=== PATIENT | female | born 1995 | race African-American/Black ===

== ENCOUNTER 2020-05-14 20:51 | Emergency (ER) | payer OTHER ==
[~2020-05-14] VITALS: Ht 165.1 cm; Wt 74.1 kg
[2020-05-15 00:17] LABS: BASO % 0.5 % (0.0-1.0); EOS # 0.2 10^3/uL (0.0-0.5); EOS % 2.7 % (0.0-3.0); HEMATOCRIT 40.4 % (36.0-47.0); LYMPH # 4.1 10^3/uL (1.5-5.0); LYMPH % 51.4 % (24.0-44.0); MEAN CORPUSCULAR HEMOGLOBIN 29.4 pg (27.0-33.0); MEAN CORPUSCULAR HGB CONC 32.2 g/dl (32.0-36.5); MEAN CORPUSCULAR VOLUME 91.4 fl (80.0-96.0); MONO # 0.6 10^3/uL (0.0-0.8); MONO % 7.8 % (0.0-5.0); NEUTROPHILS % 37.4 % (36.0-66.0); PLATELET COUNT, AUTOMATED 274 10^3/uL (150-450); RED BLOOD COUNT 4.42 10^6/uL (4.00-5.40); WHITE BLOOD COUNT 8.1 10^3/uL (4.0-10.0)
--- NOTE | 2020-05-15 00:42 | REPVR ---
PROCEDURE INFORMATION: Exam: US Duplex Right Lower Extremity Veins, Limited Exam date and time: 05/14/2020 12:34 AM Age: 24 years old Clinical indication: Edema, localized; Lower extremity, right; Additional info: Numbness R leg, swelling R knee TECHNIQUE: Imaging protocol: Real-time Duplex ultrasound of the Right Lower Extremity with 2-D ryan scale, color Doppler flow and spectral waveform analysis with image documentation. Limited exam was focused on the right lower extremity veins. COMPARISON: No relevant prior studies available. FINDINGS: Right deep veins: Unremarkable. The common femoral, femoral, proximal profunda femoral and popliteal veins are patent without thrombus. Normal Doppler waveforms. Normal compressibility and/or augmentation response. Right superficial veins: Unremarkable. Saphenofemoral junction is patent without thrombus. Soft tissues: Right popliteal cyst measuring 3.5 x 1.4 x 2.4 cm. IMPRESSION: 1. No evidence of DVT. 2. Right popliteal cyst. Electronically signed by: Kwame Lynch On 05/15/2020 00:42:03 AM
[2020-05-15 01:16] VITALS: BP 107/62
== END 2020-05-15 01:21 | disposition home or self-care (01) ==
LOC: M ED 20:51
DX: M71.21 Synovial cyst of popliteal space [Baker], right knee (principal); R20.2 Paresthesia of skin

== ENCOUNTER 2020-07-29 20:32 | Emergency (ER) | payer OTHER ==
[~2020-07-29] VITALS: Ht 165.1 cm; Wt 74.5 kg
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
[2020-07-29] MEDS ORDERED: IBUP-1022 PO (22:51)
[2020-07-29] MEDS ORDERED: CYCL-707 PO (22:51)
[2020-07-29] MEDS ORDERED: IBUPROFEN 600MG TAB PO ONE (23:00)
[2020-07-29] MEDS ORDERED: CYCLOBENZAPRINE 10MG TABLET PO ONE (23:00)
[2020-07-29 23:11] VITALS: BP 127/70
== END 2020-07-29 23:15 | disposition home or self-care (01) ==
LOC: M ED 20:32
DX: S33.5XXA Sprain of ligaments of lumbar spine, initial encounter (principal); V43.52XA Car driver injured in collision with other type car in traffic accident, initial encounter; Y92.9 Unspecified place or not applicable; Y93.9 Activity, unspecified; Y99.9 Unspecified external cause status

== ENCOUNTER 2020-08-18 06:55 | Emergency (ER) | payer OTHER ==
[~2020-08-18] VITALS: Ht 165.1 cm; Wt 73.8 kg
[~2020-08-18 06:55] MED LIST: CYCL-707 PO; IBUP-1022 PO
[2020-08-18 08:26] LABS: INFLUENZA A AMPLIFICATION NEGATIVE (NEGATIVE); INFLUENZA B AMPLIFICATION NEGATIVE (NEGATIVE)
--- NOTE | 2020-08-18 08:29 | REPVR ---
PROCEDURE INFORMATION: Exam: XR Chest, 1 View Exam date and time: 08/18/2020 8:00 AM Age: 24 years old Clinical indication: Cough and fever and shortness of breath; Additional info: Sob/cough/fever TECHNIQUE: Imaging protocol: XR of the chest Views: 1 view. COMPARISON: No relevant prior studies available. FINDINGS: Lungs: Unremarkable. No consolidation. Pleural space: Unremarkable. No pleural effusion. No pneumothorax. Heart/Mediastinum: Unremarkable. No cardiomegaly. Bones/joints: Unremarkable. IMPRESSION: No acute infiltrate. Electronically signed by: Kwame Lynch On 08/18/2020 08:29:08 AM
[2020-08-18 08:55] VITALS: BP 125/78
== END 2020-08-18 08:56 | disposition home or self-care (01) ==
LOC: M ED 06:55
DX: J06.9 Acute upper respiratory infection, unspecified (principal); Z11.59 Encounter for screening for other viral diseases; R50.9 Fever, unspecified; R53.83 Other fatigue; R09.89 Other specified symptoms and signs involving the circulatory and respiratory systems; R42 Dizziness and giddiness; R09.81 Nasal congestion; R06.02 Shortness of breath; R51.9 Headache, unspecified
CPT/HCPCS: 71045; 87502; 87880; 99284; U0003

== ENCOUNTER 2020-11-30 09:42 | Emergency (ER) | payer OTHER ==
[~2020-11-30] VITALS: Ht 165.1 cm; Wt 77.9 kg
[2020-11-30] MEDS ORDERED: NS 1,000 ML IV ONE (10:15)
[2020-11-30 11:07] LABS: BASO % 0.3 % (0.0-1.0); EOS # 0.1 10^3/uL (0.0-0.5); EOS % 1.1 % (0.0-3.0); HEMATOCRIT 39.7 % (36.0-47.0); HEMOGLOBIN 12.8 g/dl (12.0-15.5); LYMPH # 3.4 10^3/uL (1.5-5.0); MEAN CORPUSCULAR HGB CONC 32.2 g/dl (32.0-36.5); MEAN CORPUSCULAR VOLUME 96.1 fl (80.0-96.0); MONO # 0.7 10^3/uL (0.0-0.8); NEUTROPHILS # 4.5 10^3/uL (1.5-8.5); NEUTROPHILS % 51.5 % (36.0-66.0); PLATELET COUNT, AUTOMATED 270 10^3/uL (150-450); RED BLOOD COUNT 4.13 10^6/uL (4.00-5.40); WHITE BLOOD COUNT 8.8 10^3/uL (4.0-10.0)
[2020-11-30 11:44] LABS: BLOOD UREA NITROGEN 6 MG/DL (7-18); CALCIUM LEVEL 10.1 MG/DL (8.5-10.1); CARBON DIOXIDE LEVEL 28 MEQ/L (21-32); CHLORIDE LEVEL 106 MEQ/L (98-107); CREATININE FOR GFR 0.79 MG/DL (0.55-1.30); FREE T4 1.01 NG/DL (0.76-1.46); GLOMERULAR FILTRATION RATE > 60.0 (>60); GLUCOSE, FASTING 93 MG/DL (70-100); POTASSIUM SERUM 4.4 MEQ/L (3.5-5.1); SODIUM LEVEL 139 MEQ/L (136-145); THYROID STIMULATING HORMONE 0.636 uIU/ML (0.358-3.740)
[2020-11-30 12:56] VITALS: BP 122/79
--- NOTE | 2020-11-30 21:00 | ECGEPIP ---
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
== END 2020-11-30 13:00 | disposition home or self-care (01) ==
LOC: M ED 09:42
DX: R55 Syncope and collapse (principal); R00.0 Tachycardia, unspecified

== ENCOUNTER 2021-06-14 11:50 | Emergency (ER) | payer OTHER ==
[~2021-06-14] VITALS: Ht 165.1 cm; Wt 80.1 kg
[2021-06-14 13:39] LABS: BASO % 0.3 % (0.0-1.0); EOS # 0.1 10^3/uL (0.0-0.5); EOS % 1.2 % (0.0-3.0); HEMATOCRIT 42.2 % (36.0-47.0); HEMOGLOBIN 13.7 g/dl (12.0-15.5); LYMPH # 3.1 10^3/uL (1.5-5.0); LYMPH % 29.9 % (24.0-44.0); MEAN CORPUSCULAR HEMOGLOBIN 30.6 pg (27.0-33.0); MEAN CORPUSCULAR HGB CONC 32.5 g/dl (32.0-36.5); MEAN CORPUSCULAR VOLUME 94.4 fl (80.0-96.0); MONO # 0.7 10^3/uL (0.0-0.8); MONO % 6.6 % (2.0-8.0); NEUTROPHILS # 6.4 10^3/uL (1.5-8.5); NEUTROPHILS % 61.6 % (36.0-66.0); PLATELET COUNT, AUTOMATED 269 10^3/uL (150-450); RED BLOOD COUNT 4.47 10^6/uL (4.00-5.40); WHITE BLOOD COUNT 10.4 10^3/uL (4.0-10.0)
[2021-06-14 14:07] LABS: ALBUMIN 4.6 GM/DL (3.2-5.2); ALT/SGPT 17 U/L (12-78); BILIRUBIN,DIRECT 0.1 MG/DL (0.0-0.2); BILIRUBIN,TOTAL 0.4 MG/DL (0.2-1.0); BLOOD UREA NITROGEN 9 MG/DL (7-18); CALCIUM LEVEL 9.8 MG/DL (8.5-10.1); CARBON DIOXIDE LEVEL 27 MEQ/L (21-32); CHLORIDE LEVEL 105 MEQ/L (98-107); CREATININE FOR GFR 0.69 MG/DL (0.55-1.30); GLOMERULAR FILTRATION RATE > 60.0 (>60); GLUCOSE, FASTING 77 MG/DL (70-100); LIPASE 140 U/L (73-393); POTASSIUM SERUM 4.1 MEQ/L (3.5-5.1); SODIUM LEVEL 136 MEQ/L (136-145); TOTAL PROTEIN 8.8 GM/DL (6.4-8.2)
[2021-06-14 14:28] LABS: HCG, SERUM QUALITATIVE POSITIVE (NEGATIVE)
[2021-06-14 15:13] LABS: HCG, SERUM QUANTITATIVE 362 MIU/ML
--- NOTE | 2021-06-14 16:40 | REP ---
INDICATION: vaginal spotting hcg 362`. COMPARISON: None. TECHNIQUE: Real-time sonographic evaluation of pelvis performed utilizing transabdominal and endovaginal technique. FINDINGS: The uterus measures 6.8 x 3.1 x 3.4 cm. No gestational sac is seen in the endometrial canal. The endometrial echo complex measures 7 mm in AP dimension. A nabothian cyst in the region of the cervix measures 5 mm in diameter. The right ovary measures 3.8 x 2.7 x 3.2 cm and contains a simple cystic structure 2.7 x 2.2 x 2.4 cm, representing a dominant follicle or corpus luteum. The left ovary measures 2.9 x 2.0 x 2.4 cm. There is blood flow seen in each ovary with duplex Doppler evaluation, with no torsion. In the right adnexa there appears to be a simple cystic structure likely representing a paraovarian cyst 1.5 cm. A similar cystic structure in the left adnexa 1.6 cm also probably represents a paraovarian cyst. There is a hyperechoic nodule adjacent to the left ovary 1.1 x 1.2 x 1.0 cm. This has a hypoechoic center. This may represent a tubal ectopic . There is mild free fluid in the cul-de-sac. IMPRESSION: No intrauterine gestational sac. Hyperechoic ring like structure adjacent to the left ovary measures 1.2 cm and may represent a tubal ectopic . There is mild free fluid. There is no torsion. <Electronically signed by Isaiah Grewal > 06/14/21 [id number]
[2021-06-14 17:25] VITALS: BP 131/89
--- NOTE | 2021-06-18 13:08 | ED PDOC ---
Post-Departure Follow-Up ob us faxed to dr jaeger and dr storm for fu Itzel Temple MD Jun 18, 2021 13:08
== END 2021-06-14 17:31 | disposition home or self-care (01) ==
LOC: M ED 11:50
DX: Z32.01 Encounter for pregnancy test, result positive (principal); O34.80 Maternal care for other abnormalities of pelvic organs, unspecified trimester; Z3A.00 Weeks of gestation of pregnancy not specified

== ENCOUNTER → 2021-06-16 | Outpatient (CLI) | payer OTHER | LOC: M LAB 10:51 | PROVIDERS: ATTEND Physician Assistant Medical | DX: Z32.01 Encounter for pregnancy test, result positive (principal) ==

== ENCOUNTER 2021-07-11 13:27 | Emergency (ER) | payer OTHER ==
[~2021-07-11] VITALS: Ht 165.1 cm; Wt 81.7 kg
[2021-07-11 15:47] LABS: BASO % 0.2 % (0.0-1.0); EOS # 0.2 10^3/uL (0.0-0.5); EOS % 2.2 % (0.0-3.0); HEMATOCRIT 42.6 % (36.0-47.0); HEMOGLOBIN 13.9 g/dl (12.0-15.5); LYMPH # 2.5 10^3/uL (1.5-5.0); LYMPH % 29.6 % (24.0-44.0); MEAN CORPUSCULAR HGB CONC 32.6 g/dl (32.0-36.5); MEAN CORPUSCULAR VOLUME 94.9 fl (80.0-96.0); MONO # 0.6 10^3/uL (0.0-0.8); MONO % 6.4 % (2.0-8.0); NEUTROPHILS # 5.2 10^3/uL (1.5-8.5); NEUTROPHILS % 61.1 % (36.0-66.0); PLATELET COUNT, AUTOMATED 299 10^3/uL (150-450); RED BLOOD COUNT 4.49 10^6/uL (4.00-5.40); WHITE BLOOD COUNT 8.6 10^3/uL (4.0-10.0)
[2021-07-11 16:42] VITALS: BP 124/78
== END 2021-07-11 16:45 | disposition home or self-care (01) ==
LOC: M ED 13:27
DX: R11.0 Nausea (principal); Z32.01 Encounter for pregnancy test, result positive; Z87.59 Personal history of other complications of pregnancy, childbirth and the puerperium

== ENCOUNTER → 2021-07-11 | Outpatient (REF) | payer OTHER | LOC: M PLALAB 16:04 | PROVIDERS: ATTEND Advanced Practice Midwife | DX: O00.90 Unspecified ectopic pregnancy without intrauterine pregnancy (principal) ==

== ENCOUNTER → 2021-07-12 | Outpatient (CLI) | payer OTHER | LOC: M PLALAB 11:28 | PROVIDERS: ATTEND Advanced Practice Midwife | DX: O00.90 Unspecified ectopic pregnancy without intrauterine pregnancy (principal) ==

== ENCOUNTER → 2021-09-18 | Outpatient (CLI) | payer OTHER | LOC: M PLALAB 10:48 | PROVIDERS: ATTEND Advanced Practice Midwife | DX: Z87.59 Personal history of other complications of pregnancy, childbirth and the puerperium (principal) ==

== ENCOUNTER → 2021-10-09 | Outpatient (REF) | payer OTHER ==
[2021-10-09 17:11] LABS: HEMATOCRIT 43.7 % (36.0-47.0); HEMOGLOBIN 14.3 g/dl (12.0-15.5); MEAN CORPUSCULAR HEMOGLOBIN 30.5 pg (27.0-33.0); MEAN CORPUSCULAR HGB CONC 32.7 g/dl (32.0-36.5); MEAN CORPUSCULAR VOLUME 93.2 fl (80.0-96.0); PLATELET COUNT, AUTOMATED 293 10^3/uL (150-450); RED BLOOD COUNT 4.69 10^6/uL (4.00-5.40); WHITE BLOOD COUNT 10.2 10^3/uL (4.0-10.0)
[2021-10-09 17:32] LABS: HCG, SERUM QUANTITATIVE 176 MIU/ML
[2021-10-09 17:46] LABS: HEPATITIS B SURFACE ANTIGEN NEGATIVE (NEGATIVE)
[2021-10-09 18:15] LABS: HEPATITIS C VIRUS ABY INDEX 0.1 INDEX (<0.8); HIV 1&2 SCREEN CENTAUR NEGATIVE (NEGATIVE)
== END ==
LOC: M LAB REF 16:24
PROVIDERS: ATTEND Obstetrics & Gynecology
DX: O36.80X0 Pregnancy with inconclusive fetal viability, not applicable or unspecified (principal); Z32.01 Encounter for pregnancy test, result positive; Z3A.00 Weeks of gestation of pregnancy not specified

== ENCOUNTER → 2021-10-11 | Outpatient (CLI) | payer OTHER ==
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
== END ==
LOC: M RAD 14:08
PROVIDERS: ATTEND Obstetrics & Gynecology Obstetrics
DX: N91.1 Secondary amenorrhea (principal); Z87.59 Personal history of other complications of pregnancy, childbirth and the puerperium

== ENCOUNTER 2021-10-23 21:08 | Day surgery (SDC) | payer OTHER ==
[~2021-10-23] VITALS: Ht 167.6 cm; Wt 75.9 kg
[2021-10-23] MEDS ORDERED: NS 1,000 ML IV ONE (21:30)
[2021-10-23 21:46] LABS: BASO % 0.2 % (0.0-1.0); EOS % 0.2 % (0.0-3.0); HEMATOCRIT 32.7 % (36.0-47.0); HEMOGLOBIN 10.8 g/dl (12.0-15.5); LYMPH # 2.8 10^3/uL (1.5-5.0); LYMPH % 15.3 % (24.0-44.0); MEAN CORPUSCULAR HEMOGLOBIN 30.6 pg (27.0-33.0); MEAN CORPUSCULAR VOLUME 92.6 fl (80.0-96.0); MONO # 0.6 10^3/uL (0.0-0.8); MONO % 3.3 % (2.0-8.0); NEUTROPHILS # 14.9 10^3/uL (1.5-8.5); NEUTROPHILS % 80.6 % (36.0-66.0); PLATELET COUNT, AUTOMATED 249 10^3/uL (150-450); RED BLOOD COUNT 3.53 10^6/uL (4.00-5.40); WHITE BLOOD COUNT 18.5 10^3/uL (4.0-10.0)
[2021-10-23 21:58] LABS: PARTIAL THROMBOPLASTIN TIME 21.1 SECONDS (25.9-37.0)
[2021-10-23 22:01] LABS: PROTHROMBIN TIME 13.6 SECONDS (12.7-14.5)
[2021-10-23 22:24] LABS: RSV AMPLIFICATION NEGATIVE (NEGATIVE)
[2021-10-23 22:41] LABS: ALBUMIN 3.9 GM/DL (3.2-5.2); BILIRUBIN,DIRECT 0.1 MG/DL (0.0-0.2); BILIRUBIN,TOTAL 0.3 MG/DL (0.2-1.0); TOTAL PROTEIN 7.6 GM/DL (6.4-8.2)
[2021-10-23] MEDS ORDERED: PHENYLephrine 500MCG 5ML (100MCG/ML) SYRINGE ONE (23:01)
[2021-10-23] MEDS ORDERED: HOME MED LIST COMPLETE! XX SCH (23:10)
[2021-10-23] MEDS ORDERED: LIDOCAINE 2% 100MG/5ML SDV (FOR ANES.) As Ordered ONE (23:34)
[2021-10-23] MEDS ORDERED: propofoL 200 MG/20 ML VIAL As Ordered ONE (23:34)
[2021-10-23] MEDS ORDERED: MIDAZOLAM INJ 2MG/2ML VIAL (J2250 PER 1MG) As Ordered ONE (23:34)
[2021-10-23] MEDS ORDERED: fentaNYL 100 MCG/2 ML INJECTION (J3010) As Ordered ONE (23:34)
[2021-10-23] MEDS ORDERED: ONDANSETRON 4MG/2ML VIAL As Ordered ONE (23:35)
[2021-10-23] MEDS ORDERED: ROCURONIUM BROMIDE 50 MG/5 ML VIAL As Ordered ONE (23:35)
[2021-10-23] MEDS ORDERED: dexameTHASONE 4 MG/ML 1ML VIAL (J1100 PER 1MG) As Ordered ONE (23:35)
--- NOTE | 2021-10-23 23:43 | REPVR ---
PROCEDURE INFORMATION: Exam: US Duplex Artery and Vein of the Abdominal and/or Reproductive Organs. Complete Ovaries Exam date and time: 10/23/2021 10:17 PM Age: 26 years old Clinical indication: complicated by abdominal or pelvic pain; Lower; First trimester (<14 weeks 0 days); Gestational age or lmp: 09/10/21; ; Additional info: , abd pain, hypotensive TECHNIQUE: Imaging protocol: Real-time duplex ultrasound scan of the arterial and venous flow with color Doppler flow and spectral waveform analysis with image documentation. Complete duplex exam focused on the ovaries. Duplex exam was added to evaluate for torsion and other vascular conditions. COMPARISON: No relevant prior studies available. FINDINGS: Right ovary/adnexa: The arterial and venous color Doppler flow and spectral waveforms within the right ovary are within normal limits, without evidence for right ovarian torsion. Left ovary/adnexa: The arterial and venous color Doppler flow and spectral waveforms within the left ovary are within normal limits, without evidence for left ovarian torsion. IMPRESSION: No evidence for ovarian torsion. PROCEDURE INFORMATION: Exam: US First Trimester, Transabdominal and US , Transvaginal Exam date and time: 10/23/2021 10:17 PM Age: 26 years old Clinical indication: complicated by abdominal or pelvic pain; Lower; First trimester (<14 weeks 0 days); Gestational age or lmp: 09/10/21; ; Additional info: , abd pain, hypotensive TECHNIQUE: Imaging protocol: Real-time transabdominal obstetrical ultrasound of the maternal pelvis and a first trimester , less than 14 weeks 0 days, with image documentation. Transvaginal imaging was used for better evaluation of the fetus, adnexa, and/or cervix. COMPARISON: No relevant prior studies available. FINDINGS: Gestation: No intrauterine or pole is identified. Embryonic/ heart rate: No cardiac activity is visualized. Extra-embryonic membranes/Placenta: No placenta is visualized. Amniotic fluid: No amniotic fluid is visualized. MATERNAL: Uterus: The anteverted uterus measures 7.1 cm x 3.8 cm x 4.3 cm. No myometrial mass is noted. The endometrium measures 13 mm in thickness and is homogeneous in appearance. Cervix: Unremarkable. Right ovary/adnexa: The right ovary is normal in appearance. No right ovarian cyst or right adnexal mass is noted. The right ovary measures 3.5 cm x 2.4 cm x 2.3 cm. Left ovary/adnexa: There is a 2.2 cm x 2.3 cm x 1.8 cm cystic left adnexal mass, which has a smaller thin-walled cystic structure that may represent a yolk sac. The left ovary is normal in appearance and measures 2.8 cm x 2.3 cm x 2 cm. Intraperitoneal space: There is a large amount of heterogeneous fluid in the pelvis, which likely represents hemorrhage. IMPRESSION: No intrauterine visualized and there is a 2.2 cm x 2.3 cm x 1.8 cm cystic left adnexal mass, which may represent a ruptured left tubal ectopic given that there is a large amount of hemorrhage in the pelvis. Electronically signed by: Wesley Zapata On 10/23/2021 23:42:42 PM
[2021-10-23] MEDS ORDERED: BUPIVACAINE HCL 0.25% 30ML VIAL As Ordered ONE (23:49)
[2021-10-24] VITALS (7 sets, daily range): BP systolic 106–121; BP diastolic 56–80
[2021-10-24] MEDS ORDERED: ETOMIDATE INJ 20MG/10ML VIAL As Ordered ONE ×2 (00:01→00:48)
[2021-10-24] MEDS ORDERED: PHENYLephrine 500MCG 5ML (100MCG/ML) SYRINGE As Ordered ONE (00:47)
[2021-10-24] MEDS ORDERED: ROCURONIUM BROMIDE 50 MG/5 ML VIAL As Ordered ONE (00:47)
[2021-10-24] MEDS ORDERED: fentaNYL 100 MCG/2 ML INJECTION (J3010) As Ordered ONE (00:48)
[2021-10-24] MEDS ORDERED: ACETAMINOPHEN 1000MG 100ML IV BTL (OFIRMEV) (J0131 PER 10MG) As Ordered ONE (00:50)
[2021-10-24] MEDS ORDERED: SUGAMMADEX SODIUM 500 MG/5 ML VIAL (BRIDION) As Ordered ONE (00:53)
[2021-10-24] MEDS ORDERED: KETOROLAC 60MG 2ML VIAL As Ordered ONE (00:53)
[2021-10-24] MEDS ORDERED: LR 1,000 ML IV SCH ×2 (01:30)
[2021-10-24] MEDS ORDERED: fentaNYL 100 MCG/2 ML INJECTION (J3010) IV PRN (01:30)
[2021-10-24] MEDS ORDERED: oxyCODONE 5MG TAB PO PRN (01:30)
[2021-10-24] MEDS ORDERED: ONDANSETRON 4MG/2ML VIAL IV PRN (01:30)
--- NOTE | 2021-10-24 01:33 | ROOPDOC ---
[facility] Report Of Operation Report of Operation DATE OF PROCEDURE: 10/24/21 PREPROCEDURE DIAGNOSES: Ruptured ectopic . POSTPROCEDURE DIAGNOSES: Same. PROCEDURE PERFORMED: Laparoscopic left partial salpingectomy. SURGEON: Elias Ojeda MD DIRECTOR PROCESS IMPROVEMENT: Lester Mcguire MD ANESTHESIA: GETA. ESTIMATED BLOOD LOSS: Approximately 1500 mL. FLUID: 2 units packed red blood cells. COMPLICATIONS: None. FINDINGS: 1500 mL of blood in the abdomen. Ruptured ectopic in the isthmic portion of the remnant of the left fallopian tube (patient had prior left salpingectomy). Normal-appearing right ovary and fallopian tube. Normal- appearing uterus. Normal upper abdomen. SPECIMENS REMOVED: Portion of left fallopian tube. Fallopian tube cyst of right ovary. Fragments of ectopic gestation. DESCRIPTION OF PROCEDURE: The patient was taken to the operating room where general endotracheal anesthesia was induced. She was prepped and draped in a sterile fashion in the dorsal lithotomy position. A Stapleton catheter was placed. A Hulka tenaculum was placed as a uterine manipulator. A periumbilical incision was made with a scalpel. An 11 mm trocar was placed through this incision you using Visiport. Two 5 mm suprapubic ports were placed under direct visualization. A suction and irrigation device was used to evacuate extensive amounts of blood from the abdominal cavity. The bleeding area from the ruptured isthmic portion of the remnant of the left fallopian tube was grasped and elevated. A harmonic scalpel was used to coagulate and incise broad ligament attachments. The remaining tube was removed completely. Good hemostasis was noted. Significant time was then spent suctioning a large amount of blood from her abdomen. A total of 1500 cc was removed. A small fallopian tube cyst on the right ovary was removed. The pneumoperitoneum was released. All instruments were removed. Skin was closed with 4-0 Monocryl subcuticular sutures. Sponge, instrument, and needle counts were correct. ELIAS OJEDA MD Oct 24, 2021 01:33
[2021-10-24] MEDS: PERCOCET 5MG/325MG TAB PO PRN ×2 (04:33→12:37)
[2021-10-24] MEDS ORDERED: KETOROLAC 30 MG/ML 1ML VIAL IV PRN (07:00)
[2021-10-24] MEDS ORDERED: OXYC1TAB23 PO (08:40)
[2021-10-24] MEDS ORDERED: IBUP-1022 PO (08:41)
--- NOTE | 2021-10-24 19:36 | ECGEPIP ---
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
== END 2021-10-24 13:45 | disposition home or self-care (01) ==
LOC: M ED 21:08 → M SDC 23:00 → M 4MAIN 10-24 02:09 → M SDC 10-24 13:45
PROVIDERS: ATTEND Specialist
DX: O00.102 Left tubal pregnancy without intrauterine pregnancy (principal)
CPT/HCPCS: 36415; 36430; 59151; 76801; 76817; 80047; 80076; 83690; 84702; 85025; 85610; 85730; 86850; 86900; 86901; 86920; 87631; 88305; 93005; 93041; 93976; 96361; 96374; 96375; 99285; J0131; J1100; J1885; J2250; J2370; J2405; J3010; P9016

== ENCOUNTER → 2021-11-13 | Outpatient (REF) | payer OTHER ==
[~2021-11-13] MED LIST changes: +OXYC1TAB23 PO
== END ==
LOC: M LAB REF 16:41
PROVIDERS: ATTEND Advanced Practice Midwife
DX: R30.0 Dysuria (principal)

== ENCOUNTER → 2021-12-18 | Outpatient (REF) | payer OTHER | LOC: M LAB REF 16:12 | PROVIDERS: ATTEND Obstetrics & Gynecology | DX: Z32.02 Encounter for pregnancy test, result negative (principal); N92.6 Irregular menstruation, unspecified ==

== ENCOUNTER → 2021-12-27 | Outpatient (REF) | payer OTHER | LOC: M LAB REF 12:39 | PROVIDERS: ATTEND Obstetrics & Gynecology | DX: Z32.02 Encounter for pregnancy test, result negative (principal); N92.6 Irregular menstruation, unspecified ==

== ENCOUNTER → 2021-12-31 | Outpatient (REF) | payer OTHER | LOC: M LAB REF 12:13 | PROVIDERS: ATTEND Obstetrics & Gynecology | DX: O36.80X0 Pregnancy with inconclusive fetal viability, not applicable or unspecified (principal) ==

== ENCOUNTER → 2022-01-03 | Outpatient (REF) | payer OTHER ==
[~2022-01-03] MED LIST changes: +ACET160L16 PO; +ONDA4TAB6 PO
== END ==
LOC: M LAB REF 12:19
PROVIDERS: ATTEND Obstetrics & Gynecology
DX: O36.80X0 Pregnancy with inconclusive fetal viability, not applicable or unspecified (principal); Z3A.00 Weeks of gestation of pregnancy not specified

== ENCOUNTER 2022-01-04 09:29 | Emergency (ER) | payer OTHER ==
[~2022-01-04] VITALS: Ht 165.1 cm; Wt 81.2 kg
[~2022-01-04 09:29] MED LIST changes: -ACET160L16 PO; -ONDA4TAB6 PO
[2022-01-04 11:20] LABS: BASO % 0.3 % (0.0-1.0); EOS # 0.1 10^3/uL (0.0-0.5); EOS % 0.7 % (0.0-3.0); HEMATOCRIT 36.4 % (36.0-47.0); HEMOGLOBIN 11.9 g/dl (12.0-15.5); LYMPH # 2.2 10^3/uL (1.5-5.0); LYMPH % 18.8 % (24.0-44.0); MEAN CORPUSCULAR HEMOGLOBIN 29.3 pg (27.0-33.0); MEAN CORPUSCULAR HGB CONC 32.7 g/dl (32.0-36.5); MEAN CORPUSCULAR VOLUME 89.7 fl (80.0-96.0); MONO # 0.5 10^3/uL (0.0-0.8); MONO % 4.5 % (2.0-8.0); NEUTROPHILS # 8.8 10^3/uL (1.5-8.5); NEUTROPHILS % 75.4 % (36.0-66.0); PLATELET COUNT, AUTOMATED 244 10^3/uL (150-450); RED BLOOD COUNT 4.06 10^6/uL (4.00-5.40); WHITE BLOOD COUNT 11.7 10^3/uL (4.0-10.0)
[2022-01-04] MEDS ORDERED: ONDANSETRON 4 MG ORAL DISINTEGRATING TAB PO ONE (11:20)
[2022-01-04 12:10] LABS: ALT/SGPT 16 U/L (12-78); BILIRUBIN,TOTAL 0.4 MG/DL (0.2-1.0); BLOOD UREA NITROGEN 9 MG/DL (7-18); CALCIUM LEVEL 9.6 MG/DL (8.5-10.1); CARBON DIOXIDE LEVEL 26 MEQ/L (21-32); CHLORIDE LEVEL 109 MEQ/L (98-107); CREATININE FOR GFR 0.68 MG/DL (0.55-1.30); GLOMERULAR FILTRATION RATE > 60.0 (>60); GLUCOSE, FASTING 77 MG/DL (70-100); HCG, SERUM QUANTITATIVE 2728 MIU/ML; LIPASE 118 U/L (73-393); POTASSIUM SERUM 4.8 MEQ/L (3.5-5.1); SODIUM LEVEL 140 MEQ/L (136-145); TOTAL PROTEIN 8.2 GM/DL (6.4-8.2)
[2022-01-04 13:30] VITALS: BP 131/90
[2022-01-04 13:46] LABS: APPEARANCE, URINE CLEAR (CLEAR); BACTERIA, URINE AUTO NEGATIVE (NEGATIVE); BILIRUBIN, URINE AUTO NEGATIVE (NEGATIVE); BLOOD, URINE BLOOD NEGATIVE (NEGATIVE); COLOR, URINE YELLOW (YELLOW); GLUCOSE, URINE (UA) AUTO NEGATIVE (NEGATIVE); KETONE, URINE AUTO 1+ mg/dL (NEGATIVE); LEUKOCYTE ESTERASE, URINE AUTO NEGATIVE (NEGATIVE); MUCUS, URINE SMALL (NEGATIVE); NITRITE, URINE AUTO NEGATIVE (NEGATIVE); PROTEIN, URINE AUTO NEGATIVE (NEGATIVE); RBC, URINE AUTO 0 /HPF (0-3); SPECIFIC GRAVITY URINE AUTO 1.015 (1.002-1.035); SQUAMOUS EPITHELIAL CELL UR AU 1 /HPF (0-6); UROBILINOGEN, URINE AUTO 0.2 mg/dL (0.0-2.0); WBC, URINE AUTO 0 /HPF (0-3)
[2022-01-04] MEDS ORDERED: ONDA4TAB6 PO (21:15)
[2022-01-04] MEDS ORDERED: ACET160L16 PO (21:15)
== END 2022-01-04 13:36 | disposition home or self-care (01) ==
LOC: M ED 09:29
DX: O99.891 Other specified diseases and conditions complicating pregnancy (principal); R10.2 Pelvic and perineal pain; Z3A.01 Less than 8 weeks gestation of pregnancy; O09.291 Supervision of pregnancy with other poor reproductive or obstetric history, first trimester; Z90.721 Acquired absence of ovaries, unilateral; Z98.890 Other specified postprocedural states
CPT/HCPCS: 36415; 76801; 76817; 76857; 80053; 81001; 83690; 84702; 85025; 86850; 86900; 86901; 87086; 93976; 99283; Q0162

== ENCOUNTER 2022-01-04 20:54 | Day surgery (SDC) | payer OTHER ==
[~2022-01-04] VITALS: Ht 165.1 cm; Wt 80.9 kg
[2022-01-04] MEDS ORDERED: ACET160L16 PO (21:15)
[2022-01-04] MEDS ORDERED: ONDA4TAB6 PO (21:15)
[2022-01-05] MEDS ORDERED: NS 1,000 ML IV ONE (00:05)
[2022-01-05] MEDS ORDERED: MORPHINE 4 MG/ML 1ML VIAL/SYRINGE IV ONE (00:15)
[2022-01-05 00:48] LABS: BASO % 0.1 % (0.0-1.0); HEMATOCRIT 32.4 % (36.0-47.0); HEMOGLOBIN 10.6 g/dl (12.0-15.5); LYMPH # 1.5 10^3/uL (1.5-5.0); LYMPH % 8.8 % (24.0-44.0); MEAN CORPUSCULAR HEMOGLOBIN 29.1 pg (27.0-33.0); MEAN CORPUSCULAR HGB CONC 32.7 g/dl (32.0-36.5); MONO # 0.5 10^3/uL (0.0-0.8); MONO % 2.8 % (2.0-8.0); NEUTROPHILS # 14.7 10^3/uL (1.5-8.5); NEUTROPHILS % 87.9 % (36.0-66.0); PLATELET COUNT, AUTOMATED 262 10^3/uL (150-450); RED BLOOD COUNT 3.64 10^6/uL (4.00-5.40); WHITE BLOOD COUNT 16.8 10^3/uL (4.0-10.0)
[2022-01-05 01:07] LABS: APPEARANCE, URINE CLOUDY (CLEAR); BACTERIA, URINE AUTO NEGATIVE (NEGATIVE); BILIRUBIN, URINE AUTO NEGATIVE (NEGATIVE); BLOOD, URINE BLOOD NEGATIVE (NEGATIVE); COLOR, URINE YELLOW (YELLOW); GLUCOSE, URINE (UA) AUTO NEGATIVE (NEGATIVE); KETONE, URINE AUTO 2+ mg/dL (NEGATIVE); LEUKOCYTE ESTERASE, URINE AUTO 1+ (NEGATIVE); MUCUS, URINE LARGE (NEGATIVE); NITRITE, URINE AUTO NEGATIVE (NEGATIVE); PROTEIN, URINE AUTO 1+ mg/dL (NEGATIVE); RBC, URINE AUTO 2 /HPF (0-3); SQUAMOUS EPITHELIAL CELL UR AU 27 /HPF (0-6); UROBILINOGEN, URINE AUTO 0.2 mg/dL (0.0-2.0); WBC, URINE AUTO 1 /HPF (0-3)
[2022-01-05 01:17] LABS: BLOOD UREA NITROGEN 12 MG/DL (7-18); CALCIUM LEVEL 9.4 MG/DL (8.5-10.1); CARBON DIOXIDE LEVEL 24 MEQ/L (21-32); CHLORIDE LEVEL 105 MEQ/L (98-107); GLOMERULAR FILTRATION RATE > 60.0 (>60); GLUCOSE, FASTING 104 MG/DL (70-100); POTASSIUM SERUM 4.5 MEQ/L (3.5-5.1); SODIUM LEVEL 135 MEQ/L (136-145)
[2022-01-05 01:19] LABS: ALBUMIN 4.3 GM/DL (3.2-5.2); BILIRUBIN,DIRECT 0.1 MG/DL (0.0-0.2); BILIRUBIN,TOTAL 0.4 MG/DL (0.2-1.0); TOTAL PROTEIN 8.4 GM/DL (6.4-8.2)
[2022-01-05] MEDS ORDERED: HOME MED LIST COMPLETE! XX SCH (01:30)
[2022-01-05] MEDS ORDERED: LR 1,000 ML IV SCH ×2 (01:55→06:40)
[2022-01-05] MEDS ORDERED: LIDOCAINE 2% 100MG/5ML SDV (FOR ANES.) ONE (02:32)
[2022-01-05] MEDS ORDERED: ROCURONIUM BROMIDE 50 MG/5 ML VIAL ONE ×2 (02:32→03:30)
[2022-01-05] MEDS ORDERED: propofoL 200 MG/20 ML VIAL ONE ×2 (02:32→03:56)
[2022-01-05] MEDS ORDERED: fentaNYL 100 MCG/2 ML INJECTION ONE ×2 (02:33→03:13)
[2022-01-05] MEDS ORDERED: MIDAZOLAM INJ 2MG/2ML VIAL (J2250 PER 1MG) ONE (02:33)
[2022-01-05] MEDS ORDERED: dexameTHASONE 4 MG/ML 1ML VIAL (J1100 PER 1MG) ONE ×2 (02:33)
[2022-01-05] MEDS ORDERED: ONDANSETRON 4MG/2ML VIAL ONE (02:33)
[2022-01-05] MEDS ORDERED: ACETAMINOPHEN 1000MG 100ML IV BTL (OFIRMEV) (J0131 PER 10MG) ONE (03:52)
[2022-01-05] MEDS ORDERED: KETOROLAC 60MG 2ML VIAL ONE (03:56)
[2022-01-05] MEDS ORDERED: SUGAMMADEX SODIUM 500 MG/5 ML VIAL (BRIDION) ONE (03:56)
[2022-01-05] MEDS ORDERED: LIDOCAINE W/EPINEPHRINE 1% 20ML VIAL ONE (03:59)
[2022-01-05 05:12] VITALS: BP 135/75
[2022-01-05] MEDS ORDERED: oxyCODONE 5MG TAB PO PRN (06:40)
[2022-01-05] MEDS ORDERED: MEPERIDINE INJ 25 MG/ML VIAL (J2175) IV PRN (06:40)
[2022-01-05] MEDS ORDERED: ONDANSETRON 4MG/2ML VIAL IV PRN (06:40)
[2022-01-05] MEDS ORDERED: HYDROMORPHONE HCL 0.5 MG/ 0.5 ML SYRINGE (J1170 PER 1) IV PRN (06:40)
[2022-01-05] MEDS ORDERED: fentaNYL 100 MCG/2 ML INJECTION IV PRN (06:40)
[2022-01-05] MEDS ORDERED: ACETAMINOPHEN 500 MG TAB ONE (15:25)
== END 2022-01-05 17:44 | disposition home or self-care (01) ==
LOC: M ED 20:54 → M SDC 20:55 → M ED 01-05 02:40 → M PED 01-05 05:25 → M SDC 01-05 17:44
PROVIDERS: ATTEND Obstetrics & Gynecology
DX: O00.90 Unspecified ectopic pregnancy without intrauterine pregnancy (principal)
CPT/HCPCS: 36415; 58661; 76801; 76817; 76857; 80048; 80053; 80076; 81001; 83690; 84702; 85025; 86850; 86900; 86901; 86920; 87086; 87426; 93976; 99283; 99284; J0131; J1100; J1885; J2250; J2270; J2405; J3010

== ENCOUNTER → 2022-04-12 | Outpatient (CLI) | payer OTHER ==
[~2022-04-12] MED LIST changes: +ACET160L16 PO; +ISOVUE-370 76% 100ML VIAL As Ordered ONE; +ONDA4TAB6 PO
== END ==
LOC: M RADPRO 12:39
PROVIDERS: ATTEND Specialist
DX: O00.90 Unspecified ectopic pregnancy without intrauterine pregnancy (principal)
CPT/HCPCS: 58340; 74740; Q9967

== ENCOUNTER → 2022-05-03 | Outpatient (CLI) | payer OTHER ==
[~2022-05-03] MED LIST changes: -ISOVUE-370 76% 100ML VIAL As Ordered ONE
[2022-05-03 08:54] LABS: BASO % 0.4 % (0.0-1.0); EOS # 0.2 10^3/uL (0.0-0.5); EOS % 1.8 % (0.0-3.0); HEMATOCRIT 32.6 % (36.0-47.0); HEMOGLOBIN 9.7 g/dl (12.0-15.5); LYMPH # 2.8 10^3/uL (1.5-5.0); LYMPH % 30.3 % (24.0-44.0); MEAN CORPUSCULAR HEMOGLOBIN 23.8 pg (27.0-33.0); MEAN CORPUSCULAR HGB CONC 29.8 g/dl (32.0-36.5); MEAN CORPUSCULAR VOLUME 79.9 fl (80.0-96.0); MONO # 0.7 10^3/uL (0.0-0.8); NEUTROPHILS # 5.4 10^3/uL (1.5-8.5); NEUTROPHILS % 59.3 % (36.0-66.0); PLATELET COUNT, AUTOMATED 279 10^3/uL (150-450); RED BLOOD COUNT 4.08 10^6/uL (4.00-5.40); WHITE BLOOD COUNT 9.1 10^3/uL (4.0-10.0)
[2022-05-03 09:32] LABS: ALBUMIN 4.1 GM/DL (3.2-5.2); ALT/SGPT 16 U/L (12-78); BILIRUBIN,TOTAL 0.4 MG/DL (0.2-1.0); BLOOD UREA NITROGEN 9 MG/DL (7-18); CALCIUM LEVEL 9.7 MG/DL (8.5-10.1); CARBON DIOXIDE LEVEL 23 MEQ/L (21-32); CHLORIDE LEVEL 109 MEQ/L (98-107); CHOLESTEROL LEVEL 146 MG/DL (<200); CHOLESTEROL RISK RATIO 2.807 (<5); CREATININE FOR GFR 0.74 MG/DL (0.55-1.30); FREE T4 1.21 NG/DL (0.76-1.46); GLOMERULAR FILTRATION RATE > 60.0 (>60); GLUCOSE, FASTING 70 MG/DL (70-100); HDL CHOLESTEROL 52 MG/DL (>40); IRON (FE) 24 UG/DL (50-170); LDL CHOLESTEROL 81 MG/DL (<100); NON-HDL-C 94 MG/DL; PERCENT SATURATION 4.8 % (13.2-45.0); POTASSIUM SERUM 4.2 MEQ/L (3.5-5.1); SODIUM LEVEL 140 MEQ/L (136-145); THYROID STIMULATING HORMONE 0.478 uIU/ML (0.358-3.740); TOTAL IRON BINDING CAPACITY 499 UG/DL (250-450); TOTAL PROTEIN 8.3 GM/DL (6.4-8.2); TRIGLYCERIDES LEVEL 63 MG/DL (<150)
[2022-05-03 11:18] LABS: TOTAL 25(OH) VITAMIN D 27.2 NG/ML (30.0-100.0)
[2022-05-03 11:22] LABS: VITAMIN B12 LEVEL 289 PG/ML
[2022-05-03 11:58] LABS: HIV 1&2 SCREEN CENTAUR NEGATIVE (NEGATIVE)
[2022-05-03 12:28] LABS: GC DNA AMPLIFICATION NEGATIVE (NEGATIVE)
[2022-05-06 13:08] LABS: FOLATE 19.5 NG/ML
== END ==
LOC: M RAD 07:39
PROVIDERS: ATTEND Nurse Practitioner Adult Health
DX: M25.561 Pain in right knee (principal); Z11.3 Encounter for screening for infections with a predominantly sexual mode of transmission; Z13.220 Encounter for screening for lipoid disorders; Z13.228 Encounter for screening for other metabolic disorders; Z13.29 Encounter for screening for other suspected endocrine disorder

== ENCOUNTER 2022-05-29 09:27 | Outpatient (CLI) | payer OTHER ==
[2022-05-29] MEDS ORDERED: FERRIC CARBOXYMALTOSE INJ 750 MG in NS 250 ML (>50kg) IV ONE ×3 (09:30)
[2022-05-29 09:35] VITALS: BP 132/80
[2022-05-29 10:16] VITALS: BP 121/74
[2022-05-29 11:20] VITALS: BP 117/70
== END 2022-05-29 11:20 ==
LOC: M INFU 09:27
PROVIDERS: ATTEND Nurse Practitioner Adult Health
DX: D64.9 Anemia, unspecified (principal)
CPT/HCPCS: 96365; J1439

== ENCOUNTER 2022-06-05 08:55 | Outpatient (CLI) | payer OTHER ==
[~2022-06-05] VITALS: Ht 170.2 cm; Wt 85.0 kg
[2022-06-05 08:55] VITALS: BP 123/83
[2022-06-05] MEDS ORDERED: FERRIC CARBOXYMALTOSE INJ 750 MG in NS 250 ML (>50kg) IV ONE ×3 (09:00)
[2022-06-05 11:05] VITALS: BP 118/64
== END 2022-06-05 11:05 | disposition home or self-care (01) ==
LOC: M INFU 08:55
PROVIDERS: ATTEND Nurse Practitioner Adult Health
DX: D64.9 Anemia, unspecified (principal)
CPT/HCPCS: 96365; 96366; J1439

== ENCOUNTER → 2022-06-05 | Outpatient (CLI) | payer OTHER | LOC: M PLALAB 08:20 | PROVIDERS: ATTEND Advanced Practice Midwife | DX: O09.11 Supervision of pregnancy with history of ectopic pregnancy, first trimester (principal) ==

== ENCOUNTER → 2022-10-14 | Outpatient (REF) | payer OTHER | LOC: M WUC 16:29 | PROVIDERS: ATTEND Physician Assistant | DX: R30.0 Dysuria (principal) ==